=== PATIENT | male | born 1985 | race Caucasian/White ===

== ENCOUNTER 2021-10-21 16:49 | Emergency (ER) | payer MEDICAID ==
[~2021-10-21] VITALS: Ht 170.2 cm; Wt 81.6 kg
[2021-10-21 17:08] VITALS: BP_SYST 109
[2021-10-21 22:09] VITALS: BP_SYST 122
== END 2021-10-21 22:09 | disposition home or self-care (01) ==
LOC: SED 16:49
DX: S83.92XA Sprain of unspecified site of left knee, initial encounter (principal); V28.4XXA Motorcycle driver injured in noncollision transport accident in traffic accident, initial encounter; Y93.89 Activity, other specified; Y92.89 Other specified places as the place of occurrence of the external cause; Y99.8 Other external cause status
CPT/HCPCS: 73564; 99283

== ENCOUNTER 2022-10-01 15:56 | Emergency (ER) | payer MEDICAID ==
[~2022-10-01] VITALS: Ht 172.7 cm; Wt 79.4 kg
[2022-10-01 16:27] VITALS: BP_SYST 131
[2022-10-01 16:36] VITALS: BP_SYST 131
== END 2022-10-01 16:36 | disposition home or self-care (01) ==
LOC: SED 15:56
DX: Z02.89 Encounter for other administrative examinations (principal)
CPT/HCPCS: 99283

== ENCOUNTER 2023-01-26 16:08 | Emergency (ER) | payer MEDICAID ==
[~2023-01-26] VITALS: Ht 172.7 cm; Wt 79.4 kg
[2023-01-26 16:08] VITALS: BP_SYST 121
[2023-01-26] MEDS ORDERED: ACET-2634 PO (20:40)
[2023-01-26 20:49] VITALS: BP_SYST 120
== END 2023-01-26 20:49 | disposition home or self-care (01) ==
LOC: SED 16:08
DX: S51.811A Laceration without foreign body of right forearm, initial encounter (principal); S81.811A Laceration without foreign body, right lower leg, initial encounter; F12.90 Cannabis use, unspecified, uncomplicated; F15.10 Other stimulant abuse, uncomplicated; Z79.899 Other long term (current) drug therapy; W26.8XXA Contact with other sharp object(s), not elsewhere classified, initial encounter; Y93.89 Activity, other specified; Y92.89 Other specified places as the place of occurrence of the external cause; Y99.8 Other external cause status
CPT/HCPCS: 99282